=== PATIENT | female | born 1960 | race Caucasian/White ===

== ENCOUNTER 2017-03-11 06:59 | Day surgery (SDC) | payer BC ==
[2017-03-11] MEDS ORDERED: PROPOFOL 10 MG/ML EMU IV ONE (07:19)
[2017-03-11] MEDS ORDERED: FENTANYL 100MCG/2ML SOL ONE (07:19)
[2017-03-11 08:44] VITALS: TEMP 97.7
[2017-03-11 09:21] VITALS: BP 115/70; PULSE 79; RESP 18; O2SAT 97
== END 2017-03-11 09:36 | disposition home or self-care (01) ==
LOC: SURG 06:59
PROVIDERS: ATTEND Internal Medicine Gastroenterology
DX: Z12.11 Encounter for screening for malignant neoplasm of colon (principal); Z80.0 Family history of malignant neoplasm of digestive organs; Z86.010 Personal history of colon polyps; K64.8 Other hemorrhoids
CPT/HCPCS: G0105 ×3; J3010; J2704